=== PATIENT | female | born 1970 | race Caucasian/White ===

== ENCOUNTER 2016-08-02 14:54 | Inpatient (IN) | payer OTHER ==
[~2016-08-02] VITALS: Ht 160 cm; Wt 72.9 kg
[~2016-08-02 14:54] MED LIST: CYCL-36 PO; NAPR-576 PO
[2016-08-02 15:04] VITALS: BP 142/79; PULSE 116; RESP 16; TEMP 98.5; O2SAT 97
[2016-08-02] MEDS ORDERED: SODIUM CHLOR 0.9% 1000 ML INJ 1,000 ML IV SCH (15:24)
[2016-08-02 15:30] VITALS: O2SAT 98
[2016-08-02] MEDS ORDERED: ONDANSETRON HCL 4 MG/2 ML VIAL IVP ONE (15:30)
[2016-08-02] MEDS ORDERED: SODIUM CHLORIDE 0.9% FLUSH 10 ML FLUSH IV FLUSH PRN ×2 (15:30→19:15)
--- NOTE | 2016-08-02 15:49 | PD ---
HPI Chief Complaint: GI Complaint Time Seen by Provider: 15:15 Travel History International Travel<30 days: No Contact w/Intl Traveler<30days: No Traveled to known affect area: No History of Present Illness HPI So 46 year-old woman who presents to the emergency department complaining of abdominal pain and bloating. She reports that she had some nausea starting 2 or 3 days ago. She's had bloating. She's had decreased bowel movements during the same time. She did have a bowel movement this morning. Starting yesterday she started getting diffuse lower abdominal pain. Initially a little bit worse on the left, now little bit worse on the right. She denies having had similar problems in the past. Abdominal surgeries are significant for cholecystectomy 5 years ago, and 2 previous C-sections. She otherwise had been feeling generally well and healthy. Patient also endorses that she's having weird electric shock sensations in her head and that her equilibrium is been off. Symptoms started about the same time as the abdominal pain. No history of migraines or headaches. History Past Medical History Narrative Medical Seizures PAD LMP: 2 WEEKS : 10 Para: 4 Social History Alcohol Use: Yes (OCC.) Tobacco Use: Yes ( 04/24 PPD) Allergies-Medications (Allergen,Severity, Reaction): Coded Allergies: Amoxicillin (Verified Allergy, Severe, SOB, 08/02/16) Codeine (Verified Allergy, Severe, 08/02/16) Penicillin (Verified Allergy, Severe, SWOLLEN TONGUE, SOB, 08/02/16) Lortab (Verified Allergy, Intermediate, VOMITING, ITCHING, 08/02/16) Percocet (Verified Allergy, Intermediate, VOMITING, ITCHING, 08/02/16) Vicodin (Verified Allergy, Intermediate, VOMITING, ITCHING, 08/02/16) Tetracycline (Verified Allergy, Mild, VOMITS, 08/02/16) Uncoded Allergies: "ALL PAIN KILLERS BUT TORADOL" (Allergy, Severe, ITCHING, 04/24/09) Reported Meds & Prescriptions Reported Meds & Active Scripts Active No Active Prescriptions or Reported Medications Review of Systems Except as stated in HPI: all other systems reviewed are Neg Physical Exam Narrative GENERAL: Well-appearing 46 year-old woman, appears uncomfortable but nontoxic. SKIN: Focused skin assessment warm/dry. HEAD: Atraumatic. Normocephalic. EYES: Pupils equal and round. No scleral icterus. No injection or drainage. ENT: No nasal bleeding or discharge. Mucous membranes pink and moist. NECK: Trachea midline. No JVD. CARDIOVASCULAR: Regular rate and rhythm. No murmur appreciated. RESPIRATORY: No accessory muscle use. Clear to auscultation. Breath sounds equal bilaterally. GASTROINTESTINAL: Abdomen is flat and soft. She points of lower abdominal pain but there is not significant tenderness. MUSCULOSKELETAL: No obvious deformities. No edema. NEUROLOGICAL: Awake and alert. No obvious cranial nerve deficits. Motor grossly within normal limits. Normal speech. PSYCHIATRIC: Anxious. Data Data Last Documented VS Vital Signs Date Time Temp Pulse Resp B/P Pulse Ox O2 Delivery O2 Flow Rate FiO2 08/02/16 15:30 98 Room Air 08/02/16 15:04 98.5 116 16 142/79 Orders Complete Blood Count With Diff (08/02/16 15:24) Comprehensive Metabolic Panel (08/02/16 15:24) Lipase (08/02/16 15:24) Urinalysis - C+S If Indicated (08/02/16 15:24) Ct Abd/Pel W Iv Contrast(Rout) (08/02/16 15:24) Iv Access Insert/Monitor (08/02/16 15:24) Ecg Monitoring (08/02/16 15:24) Oximetry (08/02/16 15:24) Ondansetron Inj (Zofran Inj) (08/02/16 15:30) Sodium Chlor 0.9% 1000 Ml Inj (Ns 1000 M (08/02/16 15:24) Sodium Chloride 0.9% Flush (Ns Flush) (08/02/16 15:30) Ed Urine Pregnancytest Poc (08/02/16 15:24) Ct Brain W/O Iv Contrast(Rout) (08/02/16 ) Labs Laboratory Tests Test 08/02/16 15:42 White Blood Count 16.8 TH/MM3 Red Blood Count 4.06 MIL/MM3 Hemoglobin 12.5 GM/DL Hematocrit 36.9 % Mean Corpuscular Volume 90.9 FL Mean Corpuscular Hemoglobin 30.9 PG Mean Corpuscular Hemoglobin 33.9 % Concent Red Cell Distribution Width 13.4 % Platelet Count 334 TH/MM3 Mean Platelet Volume 8.3 FL Neutrophils (%) (Auto) 79.3 % Lymphocytes (%) (Auto) 12.8 % Monocytes (%) (Auto) 6.0 % Eosinophils (%) (Auto) 0.5 % Basophils (%) (Auto) 1.4 % Neutrophils # (Auto) 13.3 TH/MM3 Lymphocytes # (Auto) 2.2 TH/MM3 Monocytes # (Auto) 1.0 TH/MM3 Eosinophils # (Auto) 0.1 TH/MM3 Basophils # (Auto) 0.2 TH/MM3 CBC Comment DIFF FINAL Differential Comment Urine Collection Type CLEAN CATCH Urine Color YELLOW Urine Turbidity CLEAR Urine pH 5.5 Urine Specific [place] 1.007 Urine Protein NEG mg/dL Urine Glucose (UA) NEG mg/dL Urine Ketones TRACE mg/dL Urine Occult Blood NEG Urine Nitrite NEG Urine Bilirubin NEG Urine Leukocyte Esterase NEG Urine RBC 0-3 /hpf Urine WBC 0-2 /hpf Urine Squamous Epithelial > 8 /hpf Cells Microscopic Urinalysis Comment CULT NOT INDICATED Urine Collection Time 15:42 MDM Medical Decision Making Medical Screen Exam Complete: Yes Emergency Medical Condition: Yes Differential Diagnosis Diverticulitis, appendicitis, constipation, colitis, other Narrative Course Medical decision making INITIAL: 46 year-old woman presents to the emergency department complaining of diffuse lower abdominal pain. She also complains of feeling very unsteady and weird electric pulse sensations in her head. She has no history of migraines to suggest an abdominal migraine. Concern for diverticulitis, or appendicitis. We'll check labs, urine, CT, reassess. Patient's son at the oncoming physician at 4 PM. Scripts No Active Prescriptions or Reported Meds Leeroy Weinstein MD Aug 02, 2016 15:49
[2016-08-02 15:51] LABS: AUTOMATED NEUTROPHIL # 13.3 TH/MM3 (1.8-7.7); BASOPHIL # 0.2 TH/MM3 (0-0.2); BASOPHIL % 1.4 % (0.0-2.0); EOSINOPHIL # 0.1 TH/MM3 (0-0.4); EOSINOPHIL % 0.5 % (0.0-4.0); HEMATOCRIT 36.9 % (35.0-46.0); HEMO FLAGS DIFF FINAL; LYMPH % 12.8 % (9.0-44.0); LYMPHOCYTE # 2.2 TH/MM3 (1.0-4.8); MEAN CELL VOLUME 90.9 FL (80.0-100.0); MEAN CORPUSCULAR HEMOGLOBIN 30.9 PG (27.0-34.0); MEAN CORPUSCULAR HGB CONC 33.9 % (32.0-36.0); NEUT % 79.3 % (16.0-70.0); PLATELET COUNT 334 TH/MM3 (150-450); RED BLOOD COUNT 4.06 MIL/MM3 (4.00-5.30); RED CELL DISTRIBUTION WIDTH 13.4 % (11.6-17.2); WHITE BLOOD COUNT 16.8 TH/MM3 (4.0-11.0)
[2016-08-02 15:55] LABS: BLOOD, URINE NEG (NEG); GLUCOSE,URINE NEG (NEG); KETONE, URINE TRACE mg/dL (NEG); NITRITE,URINE NEG (NEG); PH, URINE 5.5 (5.0-8.5)
[2016-08-02 15:58] LABS: METHOD OF COLLECTION CLEAN CATCH
[2016-08-02 15:59] LABS: COMMENT (UR) CULT NOT INDICATED; CULTURE IF INDICATED CULT NOT INDICATED; RBC, URINE 0-3 /hpf (0-3); SQUAMOUS EPITHELIAL CELL URINE > 8 /hpf (0-5); URINE COLOR YELLOW (YELLW/STRAW); WBC, URINE 0-2 /hpf (0-5)
[2016-08-02 16:59] LABS: CHLORIDE 108 MEQ/L (98-107); POTASSIUM 3.7 MEQ/L (3.5-5.1); SODIUM (NA) 141 MEQ/L (136-145)
[2016-08-02 17:04] LABS: ANION GAP 11 MEQ/L (5-15); BICARBONATE 21.9 MEQ/L (21.0-32.0); BLOOD UREA NITROGEN 6 MG/DL (7-18)
[2016-08-02 17:07] LABS: ALT (GPT) 16 U/L (10-53); AST (GOT) 19 U/L (15-37); GLOMERULAR FILTRATION RATE 86 ML/MIN (>89)
[2016-08-02 17:09] LABS: TOTAL BILIRUBIN ADULT 0.8 MG/DL (0.2-1.0)
[2016-08-02 17:10] LABS: ALKALINE PHOSPHATASE 58 U/L (45-117)
[2016-08-02] MEDS ORDERED: IOHEXOL 350 MG/ML 10 ML VIAL (for RAD DIAG) IV ONE (17:27)
[2016-08-02 17:34] VITALS: BP 109/72; PULSE 94; RESP 18; O2SAT 98
--- NOTE | 2016-08-02 17:43 | RADHPO ---
EXAM DATE/TIME: 08/02/2016 17:15 [facility] COMPARISON: No previous studies available for comparison. INDICATIONS : Dizziness. RADIATION DOSE: 67.33 CTDIvol (mGy) MEDICAL HISTORY : Seizures. SURGICAL HISTORY : None. ENCOUNTER: Initial ACUITY: 1 day PAIN SCALE: 0/10 LOCATION: cranial TECHNIQUE: Multiple contiguous axial images were obtained of the head. Using automated exposure control and adj ustment of the mA and/or kV according to patient size, radiation dose was kept as low as reasonably a chievable to obtain optimal diagnostic quality images. FINDINGS: CEREBRUM: The ventricles are normal for age. No evidence of midline shift, mass lesion, hemorrhage or acute in farction. No extra-axial fluid collections are seen. POSTERIOR FOSSA: The cerebellum and brainstem are intact. The 4th ventricle is midline. The cerebellopontine angle i s unremarkable. EXTRACRANIAL: The visualized portion of the orbits is intact. SKULL: The calvaria is intact. No evidence of skull fracture. CONCLUSION: Normal examination. No evidence of ischemic disease, hemorrhage, mass or edema. Vinicius Love MD on August 02, 2016 at 17:41 Board Certified Radiologist. This report was verified electronically.
--- NOTE | 2016-08-02 17:47 | RADHPO ---
EXAM DATE/TIME: 08/02/2016 17:19 [facility] COMPARISON: No previous studies available for comparison. INDICATIONS : Abdominal pain with vomiting and constipation. IV CONTRAST: 100 cc Omnipaque 350 (iohexol) IV ORAL CONTRAST: No oral contrast ingested. RADIATION DOSE: 10.07 CTDIvol (mGy) MEDICAL HISTORY : None SURGICAL HISTORY : Cholecystectomy. Tubal ligation. section. ENCOUNTER: Initial ACUITY: 3 days PAIN SCALE: 8/10 LOCATION: TECHNIQUE: Volumetric scanning of the abdomen and pelvis was performed. Using automated exposure control and ad justment of the mA and/or kV according to patient size, radiation dose was kept as low as reasonably achievable to obtain optimal diagnostic quality images. FINDINGS: The patient is status post cholecystectomy. Liver, spleen, pancreas, adrenal glands, kidneys are unre markable. Urinary bladder, uterus and right ovary are unremarkable. There is abnormal bowel wall thic kening seen involving the sigmoid colon proximally extending over several centimeters. There are dive rticuli in this region and a markedly inflamed diverticulum is seen on axial image 66 and 67. Signifi cant pericolonic inflammatory stranding is noted. This is consistent with acute diverticulitis. There are scattered diverticuli in the descending colon. The appendix is normal. The left ovary is seen on coronal image 25 abutting the inflamed segment of large bowel. It is otherwise normal in appearance. Lung bases are clear. Osseous structures are intact. Scattered atherosclerotic calcifications are no frankie of the aorta and iliac vessels. CONCLUSION: 1. Acute diverticulitis of the sigmoid colon identified with marked bowel wall thickening and inflamm atory stranding. The inflamed segment of bowel abuts the left ovary. 2. Diverticulosis. 3. Mild atherosclerosis. Jama Montes MD on August 02, 2016 at 17:43 Board Certified Radiologist. This report was verified electronically.
[2016-08-02] MEDS ORDERED: SODIUM CHLOR 0.9% 1000 ML INJ 1,000 ML IV ONE (18:30)
[2016-08-02] MEDS ORDERED: metroNIDAZOLE 500 MG TAB PO ONE (18:30)
[2016-08-02] MEDS ORDERED: CIPROFLOXACIN 750 MG TAB PO ONE (18:30)
[2016-08-02] MEDS ORDERED: PROCHLORPERAZINE INJ 10 MG/2 ML VIAL IV PUSH ONE (18:30)
--- NOTE | 2016-08-02 18:42 | PD ---
Data Data Last Documented VS Vital Signs Date Time Temp Pulse Resp B/P Pulse Ox O2 Delivery O2 Flow Rate FiO2 08/02/16 17:34 94 18 109/72 98 Room Air 08/02/16 15:04 98.5 Orders Complete Blood Count With Diff (08/02/16 15:24) Comprehensive Metabolic Panel (08/02/16 15:24) Lipase (08/02/16 15:24) Urinalysis - C+S If Indicated (08/02/16 15:24) Ct Abd/Pel W Iv Contrast(Rout) (08/02/16 15:24) Iv Access Insert/Monitor (08/02/16 15:24) Ecg Monitoring (08/02/16 15:24) Oximetry (08/02/16 15:24) Ondansetron Inj (Zofran Inj) (08/02/16 15:30) Sodium Chlor 0.9% 1000 Ml Inj (Ns 1000 M (08/02/16 15:24) Sodium Chloride 0.9% Flush (Ns Flush) (08/02/16 15:30) Ed Urine Pregnancytest Poc (08/02/16 15:24) Ct Brain W/O Iv Contrast(Rout) (08/02/16 ) Iohexol 350 Inj (Omnipaque 350 Inj) (08/02/16 17:27) Ciprofloxacin (Cipro) (08/02/16 18:30) Metronidazole (Flagyl) (08/02/16 18:30) Prochlorperazine Inj (Compazine Inj) (08/02/16 18:30) Sodium Chlor 0.9% 1000 Ml Inj (Ns 1000 M (08/02/16 18:30) Labs Laboratory Tests Test 08/02/16 15:42 White Blood Count 16.8 TH/MM3 Red Blood Count 4.06 MIL/MM3 Hemoglobin 12.5 GM/DL Hematocrit 36.9 % Mean Corpuscular Volume 90.9 FL Mean Corpuscular Hemoglobin 30.9 PG Mean Corpuscular Hemoglobin 33.9 % Concent Red Cell Distribution Width 13.4 % Platelet Count 334 TH/MM3 Mean Platelet Volume 8.3 FL Neutrophils (%) (Auto) 79.3 % Lymphocytes (%) (Auto) 12.8 % Monocytes (%) (Auto) 6.0 % Eosinophils (%) (Auto) 0.5 % Basophils (%) (Auto) 1.4 % Neutrophils # (Auto) 13.3 TH/MM3 Lymphocytes # (Auto) 2.2 TH/MM3 Monocytes # (Auto) 1.0 TH/MM3 Eosinophils # (Auto) 0.1 TH/MM3 Basophils # (Auto) 0.2 TH/MM3 CBC Comment DIFF FINAL Differential Comment Urine Collection Type CLEAN CATCH Urine Color YELLOW Urine Turbidity CLEAR Urine pH 5.5 Urine Specific [place] 1.007 Urine Protein NEG mg/dL Urine Glucose (UA) NEG mg/dL Urine Ketones TRACE mg/dL Urine Occult Blood NEG Urine Nitrite NEG Urine Bilirubin NEG Urine Leukocyte Esterase NEG Urine RBC 0-3 /hpf Urine WBC 0-2 /hpf Urine Squamous Epithelial > 8 /hpf Cells Microscopic Urinalysis Comment CULT NOT INDICATED Urine Collection Time 15:42 Sodium Level 141 MEQ/L Potassium Level 3.7 MEQ/L Chloride Level 108 MEQ/L Carbon Dioxide Level 21.9 MEQ/L Anion Gap 11 MEQ/L Blood Urea Nitrogen 6 MG/DL Creatinine 0.73 MG/DL Estimat Glomerular Filtration 86 ML/MIN Rate Random Glucose 90 MG/DL Calcium Level 8.4 MG/DL Total Bilirubin 0.8 MG/DL Aspartate Amino Transf 19 U/L (AST/SGOT) Alanine Aminotransferase 16 U/L (ALT/SGPT) Alkaline Phosphatase 58 U/L Total Protein 7.2 GM/DL Albumin 3.6 GM/DL Lipase 71 U/L [facility] Medical Record Reviewed: Yes Supervised Visit with MARIA FERNANDA: No Narrative Course Please refer to the outgoing provider's note. CBC & BMP Diagram 08/02/16 15:42 LFTs normal Lipase normal UA no UTI Last 24 hours Impressions Abdomen/Pelvis CT 08/02/16 1524 Signed Impressions: Service Date/Time: Tuesday, August 02, 2016 17:19 - CONCLUSION: 1. Acute diverticulitis of the sigmoid colon identified with marked bowel wall thickening and inflammatory stranding. The inflamed segment of bowel abuts the left ovary. 2. Diverticulosis. 3. Mild atherosclerosis. Jama Montes MD Head CT 08/02/16 0000 Signed Impressions: Service Date/Time: Tuesday, August 02, 2016 17:15 - CONCLUSION: Normal examination. No evidence of ischemic disease, hemorrhage, mass or edema. Vinicius Love MD Patient had a episode of vertigo when she stood up to use the bathroom at about 6:30pm or so. Nausea accompanied the vertigo. Patient also complains of a headache. The patient has acute diverticulitis with "marked bowel wall thickening and inflammatory stranding." Inflamed bowel abuts the left ovary. Cipro Flagyl ordered. The patient also received Compazine for her headache and nausea. A second liter of normal saline was ordered. Her pulse at approximately 6:30 was 87 while resting in the 120 when she woke for repeat exam. The abdomen was soft with minimal tenderness in the region of the left lower quadrant and suprapubic abdomen during reassessment just prior to admission. Diagnosis Primary Impression: Acute diverticulitis Additional Impressions: Vertigo Cephalgia Qualified Code: R51 - Nonintractable headache, unspecified chronicity pattern , unspecified headache type Admitting Information Admitting Physician Requests: Admit Scripts No Active Prescriptions or Reported Meds Clifton Chirinos MD Aug 02, 2016 18:42
[2016-08-02] MEDS ORDERED: NALOXONE HCL 0.4 MG/ML AMP IV PRN (19:15)
[2016-08-02] MEDS ORDERED: ONDANSETRON HCL 4 MG/2 ML VIAL IVP PRN (19:15)
[2016-08-02] MEDS ORDERED: MAGNESIUM HYDROXIDE SUSP 30 ML CUP PO PRN (19:15)
[2016-08-02] MEDS: SODIUM CHLOR 0.9% 1000 ML INJ 1,000 ML IV SCH (20:15)
[2016-08-02 20:18] VITALS: BP 93/59; PULSE 86; O2SAT 95
[2016-08-02 20:54] VITALS: BP 112/77; PULSE 90; RESP 18; TEMP 99.2; O2SAT 98
[2016-08-02] MEDS: SODIUM CHLORIDE 0.9% FLUSH 10 ML FLUSH IV FLUSH SCH (21:00)
[2016-08-02] MEDS ORDERED: ALUMINUM/MAGNESIUM/SIMETH 30 ML CUP PO PRN (21:30)
[2016-08-02] MEDS ORDERED: CALCIUM CARBONATE 500 MG CHEWABLE TAB CHEW PRN (21:30)
[2016-08-03] VITALS: BP 102/68; PULSE 83; RESP 18; TEMP 99.1; O2SAT 98
[2016-08-03] MEDS: metroNIDAZOLE 500 MG INJ 100 ML IV SCH ×2 (02:05→10:45)
[2016-08-03 06:08] LABS: AUTOMATED NEUTROPHIL # 8.9 TH/MM3 (1.8-7.7); BASOPHIL % 0.3 % (0.0-2.0); EOSINOPHIL # 0.1 TH/MM3 (0-0.4); EOSINOPHIL % 0.6 % (0.0-4.0); HEMATOCRIT 32.4 % (35.0-46.0); HEMO FLAGS DIFF FINAL; LYMPH % 16.7 % (9.0-44.0); MEAN CELL VOLUME 89.5 FL (80.0-100.0); MEAN CORPUSCULAR HEMOGLOBIN 30.2 PG (27.0-34.0); MEAN CORPUSCULAR HGB CONC 33.7 % (32.0-36.0); MONO % 6.2 % (0.0-8.0); NEUT % 76.2 % (16.0-70.0); PLATELET COUNT 275 TH/MM3 (150-450); RED BLOOD COUNT 3.62 MIL/MM3 (4.00-5.30); RED CELL DISTRIBUTION WIDTH 13.1 % (11.6-17.2); WHITE BLOOD COUNT 11.7 TH/MM3 (4.0-11.0)
[2016-08-03] MEDS: SODIUM CHLOR 0.9% 1000 ML INJ 1,000 ML IV SCH (06:08)
[2016-08-03 06:18] LABS: POTASSIUM 3.3 MEQ/L (3.5-5.1)
[2016-08-03 06:40] LABS: BICARBONATE 20.5 MEQ/L (21.0-32.0)
[2016-08-03] MEDS: POTASSIUM CHLORIDE 20 MEQ CONTROLLED RELEASE TAB PO ONE ×2 (07:00→07:52)
[2016-08-03 07:09] LABS: CALCIUM-PROTEIN CORRECTED 8.1 MG/DL (8.5-10.1)
[2016-08-03] MEDS: SODIUM CHLORIDE 0.9% FLUSH 10 ML FLUSH IV FLUSH SCH (07:52)
[2016-08-03 08:00] VITALS: BP 100/69; PULSE 84; RESP 16; TEMP 98.1; O2SAT 97
[2016-08-03] MEDS ORDERED: CIPROFLOXACIN 400 MG PREMIX 200 ML IV SCH (08:00)
[2016-08-03] MEDS ORDERED: ACETAMINOPHEN 325 MG TAB PO PRN (10:30)
[2016-08-03 12:00] VITALS: BP 101/69; PULSE 79; RESP 16; TEMP 98.1; O2SAT 97
[2016-08-03] MEDS ORDERED: NS + KCL 20 MEQ INJ 1,000 ML IV SCH (13:30)
[2016-08-03] MEDS ORDERED: CIPR500S2 PO (14:32)
[2016-08-03] MEDS ORDERED: METR1SUS2 PO (14:32)
--- NOTE | 2016-08-03 14:33 | HHI.DCPOC ---
Discharge Care Plan Diagnosis: (1) Acute diverticulitis (2) Vertigo Goals to Promote Your Health * To prevent worsening of your condition and complications * To maintain your health at the optimal level Directions to Meet Your Goals Take your medications as prescribed Follow your dietary instruction Follow activity as directed Keep your appointments as scheduled Take your immunizations and boosters as scheduled If your symptoms worsen call your PCP, if no PCP go to Urgent Care Center or Emergency Room Smoking is Dangerous to Your Health. Avoid second hand smoke Call the 24-hour hour crisis hotline for domestic abuse at Odin Hodge Aug 03, 2016 14:33
[2016-08-03] MEDS ORDERED: POTASSIUM CHLORIDE 20 MEQ PWD PACKET PO ONE (14:45)
--- NOTE | 2016-08-03 15:04 | HHI.HP ---
[facility] Service [facility] Primary Care Physician No Primary Care Physician Admission Diagnosis Sepsis (Diverticulitis), Vertigo, Cephalgia Diagnoses: (1) Sepsis Diagnosis: Principal (2) Acute diverticulitis Diagnosis: Principal (3) Cephalgia Diagnosis: Principal (4) Leucocytosis Diagnosis: Principal (5) Hypokalemia Diagnosis: Principal Chief Complaint: Abdominal pain Travel History International Travel<30 Days: No Contact w/Intl Traveler <30 Da: No Traveled to Known Affected Are: No Sepsis Criteria SIRS Criteria (2 or more): Heart rate over 90, WBC > 32117, < 4000 or > 10% bands Sepsis Criteria (SIRS+source): Infect source susp/known Criteria Outcome: Meets sepsis criteria History of Present Illness 46-year-old female with no chronic medical illnesses who presented to hospital because of abdominal pain and bloating. Patient states that she normal state of health until approximately 2-3 days ago when she started developing abdominal bloating and decrease amount of bowel movements. The pain progressively got worse and then she started developing a shocklike sensation up her neck into her head. She denies any previous type of headache, or any lightheadedness, dizziness, visual disturbances, unilateral weakness. Patient does have a long history of dysphagia with solid foods. She has never had a workup done at this time. She does not indicate any diarrhea, hematochezia, melena. Patient had workup done and CT scan does show significant diverticulitis with stranding abutting the ovary. Patient was given IV fluids in the emergency department with significant improvement. Patient states that her abdominal pain was much improved after the IV fluids. Patient was admitted with IV antibiotics and has significantly improved since admission. She is no longer experiencing any pain. Patient is eating [place] fried chicken without any problems. She is not experiencing any stool abnormalities to include constipation or diarrhea. Patient states that her headache has improved and is no longer experiencing any shock sensations that she was given IV fluids. With the patient's significant clinical improvement, patient is very eager to go home. Review of Systems Constitutional: DENIES: Diaphoretic episodes, Fatigue, Fever, Weight gain, Weight loss, Chills, Dizziness, Change in appetite, Night Sweats Eyes: DENIES: Blurred vision, Diplopia, Eye inflammation, Eye pain, Vision loss , Double Vision Ears, nose, mouth, throat: DENIES: Vertigo, Nasal discharge, Throat pain, Ear Pain, Running Nose, Sinus Pain Respiratory: DENIES: Apneas, Cough, Snoring, Wheezing, Hemoptysis, Sputum production, Shortness of breath Cardiovascular: DENIES: Chest pain, Palpitations, Syncope, Dyspnea on Exertion , Lower Extremity Edema, Orthopnea Gastrointestinal: COMPLAINS OF: Abdominal pain, DENIES: Black stools, Bloody stools, Constipation, Diarrhea, Nausea, Vomiting, Difficulty Swallowing, Anorexia Musculoskeletal: DENIES: Joint pain, Muscle aches, Stiffness, Joint Swelling, Back pain, Neck pain Neurologic: DENIES: Abnormal gait, Headache, Localized weakness, Paresthesias, Seizures, Speech Problems, Tremor, Poor Balance Past Family Social History Past Medical History History of childhood seizures Past Surgical History Cholecystectomy Tubal ligation Lipomas removed from back Reported Medications Reported Meds & Active Scripts Active First-Metronidazole 100 Liq (Metronidazole Benzoate) 100 Mg/Ml Susp 500 Mg PO TID Cipro Liq (Ciprofloxacin) 500 Mg/5 Ml Susp 500 Mg PO BID Allergies: Coded Allergies: Amoxicillin (Verified Allergy, Severe, SOB, 08/02/16) Codeine (Verified Allergy, Severe, 08/02/16) Penicillin (Verified Allergy, Severe, SWOLLEN TONGUE, SOB, 08/02/16) Lortab (Verified Allergy, Intermediate, VOMITING, ITCHING, 08/02/16) Percocet (Verified Allergy, Intermediate, VOMITING, ITCHING, 08/02/16) Vicodin (Verified Allergy, Intermediate, VOMITING, ITCHING, 08/02/16) Tetracycline (Verified Allergy, Mild, VOMITS, 08/02/16) Uncoded Allergies: "ALL PAIN KILLERS BUT TORADOL" (Allergy, Severe, ITCHING, 04/24/09) Family History Reviewed is significant for early onset heart disease in all family members. Social History Patient does smoke cigarettes since she was 15 years old at one pack a cigarettes a day. Drinks alcohol occasionally. Denies any illicit drugs Physical Exam Vital Signs Vital Signs Date Time Temp Pulse Resp B/P Pulse Ox O2 Delivery O2 Flow Rate FiO2 08/03/16 12:00 98.1 79 16 101/69 97 08/03/16 08:00 98.1 84 16 100/69 97 08/03/16 00:00 99.1 83 18 102/68 98 08/02/16 20:54 99.2 90 18 112/77 98 08/02/16 20:18 86 93/59 95 Room Air 08/02/16 17:34 94 18 109/72 98 Room Air 08/02/16 15:30 98 Room Air 08/02/16 15:04 98.5 116 16 142/79 97 Physical Exam GENERAL: Well-developed, well-nourished, in no acute distress. alert and orientated HEENT: Head is normocephalic without any lesions or masses noted. Facial features are symmetric. Eyes: Pupils equal round reactive to light. Extraocular muscles are intact. Conjunctivae were clear. Oropharyngeal: Pharynx without any erythema edema. Tongue is midline without deviation. Buccal mucosa is moist without any masses or lesions NECK: Supple without any masses. Trachea midline no deviation. No JVD, no bruits are appreciated CARDIAC: Regular rhythm, regular rate. S1/S2 are heard. No murmurs gallops or rubs. LUNGS: Clear to auscultation bilaterally. No wheeze, rhonchi or rales. No use of accessory muscles on inspiration or expiration. ABDOMEN: Soft, nontender. Nondistended. Bowel sounds heard in all 4 quadrants. No organomegaly or masses. Negative rebound, negative guarding EXTREMITIES: No edema, pulses are equal bilaterally. No cyanosis or clubbing NEUROLOGY: Mood and affect appear appropriate. Cranial nerves II through XII grossly intact. Muscle strength 5/5 in upper and lower extremities bilaterally. Deep tendon reflexes are 2+ in upper and lower extremities bilaterally. Laboratory Laboratory Tests Test 08/02/16 08/03/16 15:42 05:35 White Blood Count 16.8 11.7 Red Blood Count 4.06 3.62 Hemoglobin 12.5 10.9 Hematocrit 36.9 32.4 Mean Corpuscular Volume 90.9 89.5 Mean Corpuscular Hemoglobin 30.9 30.2 Mean Corpuscular Hemoglobin 33.9 33.7 Concent Red Cell Distribution Width 13.4 13.1 Platelet Count 334 275 Mean Platelet Volume 8.3 8.0 Neutrophils (%) (Auto) 79.3 76.2 Lymphocytes (%) (Auto) 12.8 16.7 Monocytes (%) (Auto) 6.0 6.2 Eosinophils (%) (Auto) 0.5 0.6 Basophils (%) (Auto) 1.4 0.3 Neutrophils # (Auto) 13.3 8.9 Lymphocytes # (Auto) 2.2 2.0 Monocytes # (Auto) 1.0 0.7 Eosinophils # (Auto) 0.1 0.1 Basophils # (Auto) 0.2 0.0 CBC Comment DIFF FINAL DIFF FINAL Differential Comment Urine Collection Type CLEAN CATCH Urine Color YELLOW Urine Turbidity CLEAR Urine pH 5.5 Urine Specific [place] 1.007 Urine Protein NEG Urine Glucose (UA) NEG Urine Ketones TRACE Urine Occult Blood NEG Urine Nitrite NEG Urine Bilirubin NEG Urine Leukocyte Esterase NEG Urine RBC 0-3 Urine WBC 0-2 Urine Squamous Epithelial > 8 Cells Microscopic Urinalysis Comment CULT NOT INDICATED Urine Collection Time 15:42 Sodium Level 141 144 Potassium Level 3.7 3.3 Chloride Level 108 113 Carbon Dioxide Level 21.9 20.5 Anion Gap 11 11 Blood Urea Nitrogen 6 6 Creatinine 0.73 0.64 Estimat Glomerular Filtration 86 100 Rate Random Glucose 90 84 Calcium Level 8.4 7.4 Total Bilirubin 0.8 Aspartate Amino Transf 19 (AST/SGOT) Alanine Aminotransferase 16 (ALT/SGPT) Alkaline Phosphatase 58 Total Protein 7.2 5.9 Albumin 3.6 Lipase 71 Protein Corrected Calcium 8.1 Result Diagram: 08/03/16 0535 08/03/16 0535 Imaging Last Impressions Abdomen/Pelvis CT 08/02/16 1524 Signed Impressions: Service Date/Time: Tuesday, August 02, 2016 17:19 - CONCLUSION: 1. Acute diverticulitis of the sigmoid colon identified with marked bowel wall thickening and inflammatory stranding. The inflamed segment of bowel abuts the left ovary. 2. Diverticulosis. 3. Mild atherosclerosis. Jama Montes MD Head CT 08/02/16 0000 Signed Impressions: Service Date/Time: Tuesday, August 02, 2016 17:15 - CONCLUSION: Normal examination. No evidence of ischemic disease, hemorrhage, mass or edema. Vinicius Love MD Assessment and Plan Problem List: (1) Sepsis ICD Code: A41.9 Status: Acute (2) Acute diverticulitis ICD Code: K57.92 Status: Acute Assessment and Plan Sepsis: Resolved Patient met criteria on presentation with leukocytosis, tachycardia, infectious source of diverticulitis. Patient started on empirical antibiotics to include Cipro, Flagyl by IV. Acute severe diverticulitis: Improved Patient presented with increasing abdominal pain associated with abnormal CT finding to include acute diverticulitis of sigmoid colon with marked bowel wall thickening and inflammatory stranding. Patient has increased her diet on her own and was eating [place] fried chicken today. She states the pain has significantly improved and she is no longer experiencing any at this time. She has had normal bowel movements. Patient was counseled extensively on diet modifications for diverticulitis. Was notified to continue antibiotics until completed. Patient does have history of dysphagia, patient notified to follow- up with drawing in hand for upper and lower endoscopies once her infection has improved. Cephalgia: Resolved. CT scan of the brain did not show any acute abnormality. Patient along experiencing any pain. Notified she can use Tylenol as needed Leukocytosis: Has some degree improved with IV hydration and IV antibiotics. Electrolyte abnormality with hypokalemia, hypocalcemia: Likely secondary to copious IV fluids. We'll replace electrolytes monitor as needed DVT prevention: Sequential compression devices Written by Odin Hodge PA-C, acting as scribe for Dr. Hroowitz on 08/03/16 at 1400. The documentation accurately reflects the work and decisions performed face-to- face by Dr. Horowitz on 08/03/16 at 1400. This note was transcribed by scribmelody Hodge PA-C. I, Dr. Fernando Horowitz personally performed the history, physical exam, and medical decision making; and confirmed the accuracy of the information in the transcribed note. Authenticated by Dr. Fernando Horowitz on 08/03/16 at 19:02. Discharge disposition Patient significantly improved clinically during her stay at the hospital with the use of IV antibiotics, IV fluids. Patient clinically stable this time. We' ll discharge home Activity: Ad david. Diet: Patient was counseled on appropriate diet for diverticulitis Medications per medication reconciliation Follow-up primary medical doctor one week, patient to make appointment with gastrologist in 2 weeks Physician Certification 2 Midnight Certification Type: Admission for Inpatient Services Order for Inpatient Services The services are ordered in accordance with Medicare regulations or non- Medicare payer requirements, as applicable. In the case of services not specified as inpatient-only, they are appropriately provided as inpatient services in accordance with the 2-midnight benchmark. Estimated LOS (days): 1 days is the estimated time the patient will need to remain in the hospital, assuming treatment plan goals are met and no additional complications. Post-Hospital Plan: Home Problem Qualifiers (1) Sepsis: Qualified Code: A41.9 - Sepsis, due to unspecified organism (2) Cephalgia: Qualified Code: R51 - Nonintractable headache, unspecified chronicity pattern, unspecified headache type Odin Hodge Aug 03, 2016 15:04 Fernando Horowitz MD Aug 03, 2016 19:02
== END 2016-08-03 16:23 | disposition home or self-care (01) | DRG 872 ==
LOC: PHED 14:54 → PHEDA 18:57 → PH3A 20:54
PROVIDERS: ADMIT Internal Medicine; ATTEND Internal Medicine
DX: A41.9 Sepsis, unspecified organism (principal); K57.32 Diverticulitis of large intestine without perforation or abscess without bleeding; F17.210 Nicotine dependence, cigarettes, uncomplicated; E83.51 Hypocalcemia; R13.10 Dysphagia, unspecified; E87.6 Hypokalemia; R42 Dizziness and giddiness; R51 Headache; R11.0 Nausea; Z88.1 Allergy status to other antibiotic agents; Z88.5 Allergy status to narcotic agent; Z88.0 Allergy status to penicillin
CPT/HCPCS: 70450; 74177; 80048; 80053; 81001; 83690; 84155; 84703; 85025; 96361; 96374; 96375; J0744; J0780; J2405; J7030; Q9967